=== PATIENT | male | born 1950 | race Caucasian/White ===

== ENCOUNTER 2017-08-01 08:31 | Emergency (ER) | payer OTHER ==
[~2017-08-01] VITALS: Ht 180.3 cm; Wt 106.0 kg
[~2017-08-01 08:31] MED LIST: ALLO100T PO; CYCL-36 PO; GLUCTAB OR; LISI-357 PO; LORTA5 PO; SIMV40TA OR; TAB-TAB PO
[2017-08-01 08:40] VITALS: BP 154/69; PULSE 74; RESP 16; TEMP 97.8; O2SAT 97
[2017-08-01] MEDS ORDERED: GLYB5TAB3 PO (08:52)
[2017-08-01] MEDS ORDERED: GLUCTAB PO (08:52)
[2017-08-01] MEDS ORDERED: LISI-519 PO (08:52)
[2017-08-01] MEDS ORDERED: SIMV40TA PO (08:52)
[2017-08-01] MEDS ORDERED: ALLO100T PO (08:52)
[2017-08-01] MEDS ORDERED: MULTTAB67 PO (08:52)
--- NOTE | 2017-08-01 08:59 | PD ---
HPI Chief Complaint: Injury Time Seen by Provider: 08:42 Travel History International Travel<30 days: No Contact w/Intl Traveler<30days: No Traveled to known affect area: No History of Present Illness HPI This 67-year-old male is complaining of pain in his left foot. He dropped all large beach umbrella on his left foot on Monday. Since then the foot is been painful and swollen. He has been icing it and try to stay off it is painful and has become ecchymotic. He has a history of diabetes and has some tingling in his toes since before the injury PFSH Past Medical History Cancer: No High Cholesterol: Yes Diabetes: Yes Patient Takes Glucophage: Yes Diminished Hearing: No Gout: Yes Hepatitis: No Hiatal Hernia: No Hypertension: Yes Medical other: Yes (NEUTOPATHY) Respiratory: Yes (PNEUMONIA 1996) Tetanus Vaccination: < 5 Years Influenza Vaccination: Yes PNEUMOCCOCAL Vaccine (Year): 2 Past Surgical History Abdominal Surgery: Yes ([place].,) Appendectomy: Yes Cardiac Surgery: No Cholecystectomy: Yes Ear Surgery: No Endocrine Surgery: No Eye Surgery: Yes (BILAT. CAT.) Genitourinary Surgery: No Gynecologic Surgery: No Neurologic Surgery: Yes Oral Surgery: No Pacemaker: No Thoracic Surgery: No Tonsillectomy: Yes Other Surgery: Yes Social History Alcohol Use: Yes (OCC.) Tobacco Use: No Substance Use: No Allergies-Medications (Allergen,Severity, Reaction): Coded Allergies: Sulfa (Sulfonamide Antibiotics) (Unverified Allergy, Severe, 08/01/17) aspirin (Unverified Allergy, Severe, BLEEDING, 08/01/17) penicillin G (Unverified Allergy, Severe, 08/01/17) Reported Meds & Prescriptions Reported Meds & Active Scripts Active Reported Glyburide 5 Mg Tab 5 Mg PO BID Take with meals at the same time each day Simvastatin 40 Mg Tab 40 Mg PO HS Multiple Vitamin 1 Tab 1 Tab PO DAILY Glucophage XR (Metformin HCl) 500 Mg Lazaro 250 Mg PO DAILY With evening meal Lisinopril 5 Mg Tab 5 Mg PO DAILY Allopurinol 100 Mg Tab 100 Mg PO DAILY Review of Systems General / Constitutional: No: Fever, Chills Eyes: No: Diploplia HENT: No: Headaches Cardiovascular: No: Chest Pain or Discomfort, Palpitations Respiratory: No: Shortness of Breath Gastrointestinal: No: Nausea, Vomiting Musculoskeletal: Positive: Myalgias, Pain Skin: No Itching Neurologic: No: Weakness Endocrine: No: Heat Intolerance Hematologic/Lymphatic: No: Easy Bruising Physical Exam Narrative GENERAL: Well-developed male SKIN: Focused skin assessment warm/dry. HEAD: Atraumatic. Normocephalic. EYES: Pupils equal and round. No scleral icterus. No injection or drainage. ENT: No nasal bleeding or discharge. Mucous membranes pink and moist. NECK: Trachea midline. No JVD. MUSCULOSKELETAL: No obvious deformities. No clubbing. No cyanosis. No edema. Left foot has some somewhat diffuse swelling. There is ecchymosis around the toes. Good dorsalis pedal and posterior tibial pulses. There are a few abrasions on the dorsum of the foot. The arch of the foot is tender NEUROLOGICAL: Awake and alert. No obvious cranial nerve deficits. Motor grossly within normal limits. Normal speech. PSYCHIATRIC: Appropriate mood and affect; insight and judgment normal. Data Data Last Documented VS Vital Signs Date Time Temp Pulse Resp B/P (MAP) Pulse Ox O2 Delivery O2 Flow Rate FiO2 08/01/17 08:54 (97) 08/01/17 08:48 Room Air 08/01/17 08:40 97.8 74 16 97 Orders Orders Foot, Complete ([id number]) (08/01/17 08:50) [facility] Medical Decision Making Medical Screen Exam Complete: Yes Emergency Medical Condition: Yes Medical Record Reviewed: Yes Differential Diagnosis Differential includes contusion, fracture Narrative Course X-ray of the foot was obtained. There is no acute fracture. There are degenerative changes noted and a prominent heel spur. Diagnosis Primary Impression: Contusion of foot Additional Instructions: Avoid weightbearing, keep elevated Disposition: 01 DISCHARGE HOME Condition: Stable Jake England MD Aug 01, 2017 08:59
--- NOTE | 2017-08-01 09:23 | RADRPT ---
EXAM DATE/TIME: 08/01/2017 08:58 [facility] COMPARISON: No previous studies available for comparison. INDICATIONS : Left foot pain, bruising, swelling, dropped a beach umbrella on top of foot Monday. MEDICAL HISTORY : Diabetes mellitus type II. SURGICAL HISTORY : None. ENCOUNTER: Initial ACUITY: 3 days PAIN SCORE: 6/10 LOCATION: Left lateral and dorsal foot FINDINGS: Three view examination of the left foot demonstrates no significant soft tissue swelling, dislocation , or fracture. The tarsal bones appear intact. The interphalangeal and metatarsophalangeal joints are intact. There are some mild degenerative changes involving the midtarsal bones. The calcaneus is intact. Bony mineralization is normal. There is a prominent heel spur on the plantar surface of the calcaneus. CONCLUSION: 1. No acute fracture or joint dislocation. 2. Primary degenerative changes involving the tarsal bones. 3. Prominent heel spur. Mu Hinton MD on August 01, 2017 at 9:19 Board Certified Radiologist. This report was verified electronically.
== END 2017-08-01 09:48 | disposition home or self-care (01) ==
LOC: PHED 08:31
DX: S90.32XA Contusion of left foot, initial encounter (principal); E11.9 Type 2 diabetes mellitus without complications; I10 Essential (primary) hypertension; E78.00 Pure hypercholesterolemia, unspecified; M10.9 Gout, unspecified; Z79.84 Long term (current) use of oral hypoglycemic drugs; W20.8XXA Other cause of strike by thrown, projected or falling object, initial encounter
CPT/HCPCS: 73630; 99283